=== PATIENT | female | born 2000 | race Caucasian/White ===

== ENCOUNTER 2021-09-29 06:25 | Emergency (ER) | payer SELFPAY ==
[~2021-09-29] VITALS: Ht 165.1 cm; Wt 109.1 kg
[2021-09-29 06:33] VITALS: TEMP 98.5
[2021-09-29] MEDS ORDERED: NORCO 325 MG-51 TAB PO (07:42)
[2021-09-29] MEDS ORDERED: CRUTCHES MC (07:47)
[2021-09-29 08:12] VITALS: BP 109/78; PULSE 85
== END 2021-09-29 08:12 | disposition home or self-care (01) ==
LOC: COL.ER 06:25
DX: S93.322A Subluxation of tarsometatarsal joint of left foot, initial encounter (principal); W00.0XXA Fall on same level due to ice and snow, initial encounter; Y93.01 Activity, walking, marching and hiking; Y92.59 Other trade areas as the place of occurrence of the external cause; Y99.0 Civilian activity done for income or pay